=== PATIENT | female | born 1980 | race Hispanic/Latino ===

== ENCOUNTER 2016-10-04 17:03 | Emergency (ER) | payer SELFPAY ==
[2016-10-04 18:20] LABS: Bilirubin,Urine NEG (Negative); Ketones,Urine NEG (Negative); Leukocyte Esterase,Urine MOD (Negative); Nitrite,Urine NEG (Negative); Urobilinogen,Urine < 2.0 mg/dL (<2.0)
[2016-10-04 18:22] LABS: Blood,Urine Large (Negative); RBC,Urine > 182.0 /HPF (0.0-6.0); WBC,Urine > 182.0 /HPF (0.0-6.0)
[2016-10-04] MEDS ORDERED: XYLOCAINE 1% MPF 5 mL INFILTRATI ONE (19:56)
[2016-10-04] MEDS ORDERED: ROCEPHIN IM STA (19:56)
--- NOTE | 2016-10-04 19:56 | Emergency Department Report ---
ED Female HPI - General Chief complaint: Urogenital-Female Stated complaint: OUT OF MEDS Source: patient, family Mode of arrival: Ambulatory Limitations: No Limitations - History of Present Illness Initial comments: Patient here reports that she is having herpes outbreak 1 weeks which is not getting better. She says she took Valtrex prior to breakout but it didn't help. She says she is also having urinary burning. Denies any frequency or urgency. Denies any abdominal or back pain. She reports that she started her cycle last night. Denies any nausea or vomiting. Denies any fever or chills. Pain at blister site vaginal area that is 9 out of 10 and burning. MD Complaint: dysuria, other (herpes outbreak) Onset/Timin -: week(s) Location: labia Radiation: non-radiating Severity: severe Severity scale (0 -10): 9 Quality: burning Consistency: constant Improves with: none Worsens with: urination Are you Now?: No Associated Symptoms: vaginal bleeding (from menstrual period ), dysuria, rash. denies: vaginal discharge, abdominal pain, nausea/vomiting, fever/chills, headaches, loss of appetite, hematuria, seizure, shortness of breath, syncope, weakness - Related Data Sexually active: Yes Previous Rx's Medication Instructions Recorded Last Taken Type Lidocaine [Lidocaine GEL] 30 gm TP TID PRN #1 gel..gram. 10/04/16 Unknown Rx Nitrofurantoin [place]/M-Cryst 100 mg PO Q12HR #14 capsule 10/04/16 Unknown Rx [Macrobid CAP] Valacyclovir HCl [Valtrex] 1,000 mg PO TID #21 tablet 10/04/16 Unknown Rx Allergies Allergy/AdvReac Type Severity Reaction Status Date / Time No Known Allergies Allergy Verified 10/04/16 17:28 ED Review of Systems ROS: Stated complaint: OUT OF MEDS Other details as noted in HPI Comment: All other systems reviewed and negative Constitutional: denies: chills, fever ENT: denies: throat pain Respiratory: no symptoms reported Cardiovascular: denies: chest pain, palpitations, edema, syncope Gastrointestinal: denies: abdominal pain, nausea, vomiting, diarrhea, constipation Genitourinary: dysuria. denies: urgency, frequency, hematuria, discharge, abnormal menses Musculoskeletal: denies: back pain, arthralgia Skin: lesions (vaginal area) Neurological: denies: headache, numbness, paresthesias, confusion ED Past Medical Hx - Past Medical History Previous Medical History?: Yes Hx Kidney Stones: Yes Additional medical history: HERPES - Surgical History Past Surgical History?: No - Family History Family history: no significant - Social History Smoking Status: Current Every Day Smoker Substance Use Type: None - Medications Home Medications: Home Medications Medication Instructions Recorded Confirmed Last Taken Type Lidocaine [Lidocaine GEL] 30 gm TP TID PRN #1 gel..gram. 10/04/16 Unknown Rx Nitrofurantoin [place]/M-Cryst 100 mg PO Q12HR #14 capsule 10/04/16 Unknown Rx [Macrobid CAP] Valacyclovir HCl [Valtrex] 1,000 mg PO TID #21 tablet 10/04/16 Unknown Rx ED Physical Exam - General Limitations: No Limitations General appearance: alert, in no apparent distress - Head Head exam: Present: atraumatic, normocephalic, normal inspection - Eye Eye exam: Present: normal appearance, PERRL, EOMI. Absent: periorbital swelling , periorbital tenderness Pupils: Present: normal accommodation - ENT ENT exam: Present: normal exam, normal orophraynx, mucous membranes moist, TM's normal bilaterally, normal external ear exam - Neck Neck exam: Present: normal inspection, full ROM. Absent: tenderness, meningismus, lymphadenopathy - Respiratory Respiratory exam: Present: normal lung sounds bilaterally. Absent: respiratory distress, chest wall tenderness - Cardiovascular Cardiovascular Exam: Present: regular rate, normal rhythm, normal heart sounds - GI/Abdominal GI/Abdominal exam: Present: soft, normal bowel sounds. Absent: distended, tenderness, guarding, rebound, rigid - External exam: Present: erythema, lesions, bleeding (menstruating). Absent: swelling, lacerations, ecchymosis - Expanded Exam Expanded Female exam: Present: herpetic lesions, vulvar erythema, vulvar tenderness. Absent: vaginal laceration, tissue present in vagina, foreign body - Extremities Exam Extremities exam: Present: normal inspection, full ROM, normal capillary refill. Absent: tenderness, pedal edema, joint swelling, calf tenderness - Back Exam Back exam: Present: normal inspection, full ROM. Absent: tenderness, CVA tenderness (R), CVA tenderness (L), muscle spasm, paraspinal tenderness, vertebral tenderness, rash noted - Neurological Exam Neurological exam: Present: alert, oriented X3, normal gait - Psychiatric Psychiatric exam: Present: normal affect, normal mood - Skin Skin exam: Present: other (hepatic lesions) - Expanded Skin Exam Expanded Distribution of rash: genitals Description of rash: Present: tenderness, erythematous, vesicular. Absent: crusting, discharge, fluctuant, indurated ED Course Vital Signs 10/04/16 17:28 Temperature 98.1 F Pulse Rate 94 H Respiratory 17 Rate Blood Pressure 128/86 O2 Sat by Pulse 100 Oximetry - Reevaluation(s) Reevaluation #1: 10/04/16 21:19 given Rocephin 1 g IM to cover UTI emergency room without any adverse reaction. ED Medical Decision Making - Lab Data Lab Results 10/04/16 Range/Units 17:55 Urine Color Red (Yellow) Urine Turbidity Turbid (Clear) Urine pH 6.0 (5.0-7.0) Ur Specific [place] 1.023 (1.003-1.030) Urine Protein 100 mg/dl (Negative) mg/dL Urine Glucose (UA) 50 (Negative) mg/dL Urine Ketones Neg (Negative) mg/dL Urine Blood Large A (Negative) Urine Nitrite Neg (Negative) Ur Reducing Substances Not Reportable Urine Bilirubin Neg (Negative) Urine Ictotest Not Reportable Urine Urobilinogen < 2.0 (<2.0) mg/dL Ur Leukocyte Esterase Mod (Negative) Urine WBC (Auto) > 182.0 H (0.0-6.0) /HPF Urine RBC (Auto) > 182.0 (0.0-6.0) /HPF U Epithel Cells (Auto) 22.0 H (0-13.0) /HPF Urine HCG, Qual Negative (Negative) Urine culture pending. She is menstruating therefore she has large amount of blood in her urine. - Medical Decision Making ED Course: Given Rocephin 1 g IM and emergency room to cover UTI. Discussed her that she has a urinary tract infection along with a herpes outbreak and I' ll put her on Macrobid for her urinary tract infection and Valtrex for herpes outbreak. I discussed with her she will need to follow-up with her primary care physician and if she does not have one she'll need to follow-up with [facility] for follow-up urinary tract infection and herpes. She was understanding of discharge instruction and will be discharged home with Macrobid, Tylenol 3 and topical lidocaine. SHe is encouraged to practice safe sex and stop smoking. Critical care attestation.: If time is entered above; I have spent that time in minutes in the direct care of this critically ill patient, excluding procedure time. ED Disposition Clinical Impression: Herpes simplex of female genitalia, Acute cystitis with hematuria, Glucosuria Disposition: DISCHARGED TO HOME OR SELFCARE Is pt being admited?: No Does the pt Need Aspirin: No Condition: Stable Instructions: Genital Herpes Simplex (ED), Urinary Tract Infection in Women (ED ) Additional Instructions: Please refrain from having sex until lesions are gone from vaginal area. Please practice safe sex. Someone from the hospital will call you need to change her antibiotic. Urine cultures are pending. increase her fluid intake. Have Small amount of glucose in urine urine therefore he will need to follow-up with primary care or [facility] for repeat urine test in 7-10 days. Prescriptions: Lidocaine [Lidocaine GEL] 30 gm TP TID PRN #1 gel..gram. PRN Reason: Vaginal pain from herpes Nitrofurantoin Gil[place]/M-Cryst [Macrobid CAP] 100 mg PO Q12HR #14 capsule Valacyclovir HCl [Valtrex] 1,000 mg PO TID #21 tablet Referrals: PRIMARY CARE [Primary Care Provider] - 10/11/16 [facility] [Outside] - 10/11/16 Forms: Accompanied Note, Work/School Release Form(ED)
[2016-10-04 21:42] VITALS: BP 134/87
== END 2016-10-04 21:32 | disposition home or self-care (01) ==
LOC: ED 17:03
DX: A60.04 Herpesviral vulvovaginitis (principal); N30.01 Acute cystitis with hematuria; R81 Glycosuria; F17.200 Nicotine dependence, unspecified, uncomplicated
CPT/HCPCS: 81001; 81025; 87086; 96372; 99282; J0696

== ENCOUNTER 2020-11-02 15:15 | Emergency (ER) | payer SELFPAY | END 2020-11-02 16:00 | disposition left against medical advice (07) | LOC: ED 15:15 | DX: Z00.8 Encounter for other general examination (principal); Z53.21 Procedure and treatment not carried out due to patient leaving prior to being seen by health care provider ==

== ENCOUNTER 2022-02-25 02:22 | Emergency (ER) | payer SELFPAY ==
[2022-02-25] MEDS ORDERED: SODIUM CHLORIDE 0.9% 1000 ML 1,000 ML IV ONE ×2 (02:36→04:38)
[2022-02-25] MEDS ORDERED: NALOXONE 0.4 MG/1 ML INJ IV ONE (02:41)
--- NOTE | 2022-02-25 02:45 | Emergency Department Report ---
History of Present Illness - General Chief Complaint: Overdose Stated Complaint: DRUG OD Time Seen by Provider: 02/25/22 02:35 Source: EMS Mode of arrival: Stretcher Limitations: No Limitations - History of Present Illness Initial Comments: Patient presents with EMS. She is a possible overdose. They state that the patient was near someone's home yelling screaming and acting abnormally. While in route she lost consciousness. She is unable to give any additional history. - Related Data Previous Rx's Medication Instructions Recorded Last Taken Type Lidocaine [Lidocaine GEL] 30 gm TP TID PRN #1 gel..gram. 10/04/16 Unknown Rx Nitrofurantoin [place]/M-Cryst 100 mg PO Q12HR #14 capsule 10/04/16 Unknown Rx [Macrobid CAP] Valacyclovir HCl [Valtrex] 1,000 mg PO TID #21 tablet 10/04/16 Unknown Rx Allergies Allergy/AdvReac Type Severity Reaction Status Date / Time No Known Allergies Allergy Verified 10/04/16 17:28 ED Review of Systems ROS: Stated complaint: DRUG OD Other details as noted in HPI Comment: Unobtainable due to pts medical conditions ED Past Medical Hx - Past Medical History Previous Medical History?: Yes Hx Kidney Stones: Yes Additional medical history: HERPES - Surgical History Past Surgical History?: No - Social History Smoking Status: Current Every Day Smoker - Medications Home Medications: Home Medications Medication Instructions Recorded Confirmed Last Taken Type Lidocaine [Lidocaine GEL] 30 gm TP TID PRN #1 gel..gram. 10/04/16 Unknown Rx Nitrofurantoin [place]/M-Cryst 100 mg PO Q12HR #14 capsule 10/04/16 Unknown Rx [Macrobid CAP] Valacyclovir HCl [Valtrex] 1,000 mg PO TID #21 tablet 10/04/16 Unknown Rx ED Physical Exam - General Limitations: Altered Mental Status General appearance: obtunded - Head Head exam: Present: atraumatic, normocephalic - Eye Eye exam: Present: normal appearance Pupils: Present: miosis - ENT ENT exam: Present: mucous membranes moist - Neck Neck exam: Present: normal inspection - Respiratory Respiratory exam: Present: normal lung sounds bilaterally. Absent: respiratory distress - Cardiovascular Cardiovascular Exam: Present: regular rate, normal rhythm. Absent: systolic murmur, diastolic murmur, rubs, gallop - GI/Abdominal GI/Abdominal exam: Present: soft, normal bowel sounds - Extremities Exam Extremities exam: Present: normal inspection - Back Exam Back exam: Present: normal inspection - Neurological Exam Neurological exam: Present: other (obtunded) - Psychiatric Psychiatric exam: Present: normal affect, normal mood - Skin Skin exam: Present: warm, dry, ecchymosis. Absent: rash ED Course Vital Signs 02/25/22 02/25/22 02:30 03:25 Temperature 99.7 F H Pulse Rate 90 Respiratory 18 20 Rate Blood Pressure 130/70 O2 Sat by Pulse 98 99 Oximetry - Reevaluation(s) Reevaluation #1: 02/25/22 04:36 Patient required ketamine as she was unable to be properly sedated using Haldol Versed and Benadryl. ED Medical Decision Making - Lab Data Result diagrams: 02/25/22 03:06 02/25/22 03:06 - Medical Decision Making Patient is a 41-year-old female presented to the emergency department with complaint of altered mental status. While in route patient became unresponsive and is currently on a nonrebreather. She is also noted to have pinpoint pupils. Given this I think most likely diagnosis is opioid overdose but I am also concerned for coingestants. Plan to give IV Narcan and reassess. Patient will require likely 4 hours of monitoring given Narcan administration and patient may require admission pending her work-up. Critical care attestation.: If time is entered above; I have spent that time in minutes in the direct care of this critically ill patient, excluding procedure time. ED Disposition Clinical Impression: Altered mental status, Methamphetamine abuse Disposition: 30 STILL A PATIENT Condition: Stable Instructions: Amphetamines Use Disorder Referrals: WARREN JACINTO MD [Staff Physician] - 3-5 Days
[2022-02-25] MEDS ORDERED: HALOPERIDOL LACTATE 5 MG/1 ML INJ IM ONE ×2 (02:57→03:34)
[2022-02-25] MEDS ORDERED: diphenhydrAMINE 50 MG/ML VIAL IV ONE (02:57)
[2022-02-25] MEDS ORDERED: MIDAZOLAM 2 MG/2 ML INJ ONE (02:59)
[2022-02-25] MEDS ORDERED: diphenhydrAMINE 50 MG/ML VIAL ONE (02:59)
[2022-02-25] MEDS ORDERED: HALOPERIDOL LACTATE 5 MG/1 ML INJ ONE (02:59)
[2022-02-25] MEDS ORDERED: MIDAZOLAM 2 MG/2 ML INJ IV NR ×2 (03:00→04:00)
[2022-02-25 03:29] LABS: Color,Urine Yellow (Yellow)
[2022-02-25 03:30] LABS: Basophils # (Auto) 0.1 K/mm3 (0.0-0.1); Basophils % (Auto) 0.8 % (0.0-1.8); Eosinophils # (Auto) 0.2 K/mm3 (0.0-0.4); Eosinophils % (Auto) 1.2 % (0.0-4.3); Hematocrit 40.9 % (30.3-42.9); Hemoglobin 13.7 gm/dl (10.1-14.3); Lymphocytes # (Auto) 1.8 K/mm3 (1.2-5.4); Lymphocytes % (Auto) 11.6 % (13.4-35.0); Mean Corpuscular HGB Conc 34 % (30-34); Mean Corpuscular Volume 92 fl (79-97); Monocytes # (Auto) 1.2 K/mm3 (0.0-0.8); Monocytes % (Auto) 7.8 % (0.0-7.3); Red Blood Count 4.43 M/mm3 (3.65-5.03); Red Cell Distribution Width 13.2 % (13.2-15.2)
[2022-02-25] MEDS ORDERED: HALOPERIDOL LACTATE 5 MG/1 ML INJ IV ONE (03:30)
[2022-02-25 03:31] LABS: Hyaline Casts,Urine 24 /LPF; Mucus,Urine FEW /HPF; White Blood Cell Casts,Urine 4 /LPF
[2022-02-25 03:36] LABS: INR 0.85 (0.87-1.13); Platelet Count 179 K/mm3 (140-440)
[2022-02-25 03:36] LABS: Amphetamine Screen,Urine PRESUMPTIVE POSITIVE; Benzodiazepines Screen,Urine PRESUMPTIVE NEGATIVE; Cannabinoid Screen,Urine PRESUMPTIVE POSITIVE; Cocaine Screen,Urine PRESUMPTIVE NEGATIVE; Methadone Screen,Urine PRESUMPTIVE NEGATIVE; Opiate Screen,Urine PRESUMPTIVE NEGATIVE
[2022-02-25 03:38] LABS: Alanine Aminotransferase 14 units/L (7-56); Albumin 4.8 g/dL (3.9-5); BUN/Creatinine Ratio 16; Blood Urea Nitrogen 14 mg/dL (7-17); Calcium 9.8 mg/dL (8.4-10.2); Hemolysis Index 28
[2022-02-25] MEDS ORDERED: MIDAZOLAM 5 MG/5 ML INJ MDV IV NR ×5 (04:00→06:00)
[2022-02-25] MEDS ORDERED: KETAMINE 500 MG/5 ML VIAL MDV IV ONE (04:10)
[2022-02-25] MEDS ORDERED: KETAMINE 500 MG/5 ML VIAL MDV ONE (04:10)
[2022-02-25] MEDS ORDERED: ZIPRASIDONE MESYLATE 20 MG VIAL IM ONE ×2 (05:33→05:34)
--- NOTE | 2022-02-25 08:29 | Cat Scan Report ---
CT head/brain wo con INDICATION: altered mental status. TECHNIQUE: Routine CT head. All CT scans at this location are performed using CT dose reduction for A BARBER by means of automated exposure control. COMPARISON: None. FINDINGS: Intracranial: Gottlieb-white matter differentiation is maintained. No intracranial hemorrhage. No extra a xial collection. No hydrocephalus. No herniation. Sinuses: Paranasal sinuses and mastoid air cells are essentially clear. Orbits: Globes are intact. Calvarium: No acute fracture. IMPRESSION: 1. No acute intracranial abnormality. Signer Name: Sree Serrano MD Signed: 02/25/2022 8:25 AM Workstation Name: [id number]
--- NOTE | 2022-02-25 10:40 | Electrocardiograph Report ---
[facility] Test Date: 2022-02-25 Test Time: 02:56:45 Pat Name: LOU SHOEMAKER Department: Room: Gender: F Dining Car Hop: DENISE : 1980 Requested By: PRISCILA LOVELL Order Number: [id number] Reading MD: Rolly August Measurements Intervals [place] Rate: 84 P: 86 NM: 141 QRS: 84 QRSD: 89 T: 49 QT: 377 QTc: 446 Interpretive Statements Sinus rhythm No previous ECG available for comparison Electronically Signed On 02-25-2022 10:40:29 EDT by Rolly August
--- NOTE | 2022-02-25 12:05 | Consultation ---
History of Present Illness - Reason for Consult Consult date: 02/25/22 Reason for consult: OD - History of Present Psychiatric Illness The patient was seen today. She says she was at a hotel room drinking. She says she then went home and was screaming in the middle of the floor. She also admits to meth use. She says her neighbor called 911. The patient denies any SI/HI or hallucinations. She denies being on any psych meds or seeing a psychiatrist. The patient denies any past history of psych disorders. PAST PSYCHIATRIC HISTORY: Diagnoses: Polysubstance abuse Suicide attempts or Self-harm behavior: Denies Prior psychiatric hospitalizations: Denies Substance Abuse history: Meth Previous psychiatric medications tried: Denies Outpatient treatment: Denies PAST MEDICAL HISTORY: None reported Family Psychiatric History: None reported or documented SOCIAL HISTORY Marital Status:Single Living Arrangements: with boyfriend Employment Status: unemployed Access to guns/weapons: Denies Education: [employer] History of Abuse:Denies Legal History: Denies REVIEW OF SYSTEMS Constitutional: Negative for weight loss ENT: Negative for stridor Respiratory: Negative for cough or hemoptysis All other systems reviewed and are negative MENTAL STATUS EXAMINATION General Appearance and Behavior: Age appropriate, wearing appropriate clothes, cooperative, polite with questioning, good eye contact Cooperation: cooperative Psychomotor Behavior: Psychomotor normal Mood: good Affect and affective range: congruent with stated affect Thought Process: Goal directed Thought Content: Reality oriented Speech: Normal volume, Regular rate and rhythm Suicidal Ideation: Denies Homicidal Ideation: Denies Hallucination: Denies Delusions: Denies Impulse Control: Limited Insight and Judgment: Limited Memory: Intact Attention:attentive Orientation: Alert and oriented Diagnoses: Encounter for Mental Health Eval Treatment Plan d/c 1013 No meds given at this time Medical: per primary Disposition: Do not recommend acute psychiatric inpatient treatment Will sign off. Thanks Case staffed with Dr. Moreno Medications and Allergies Allergies Allergy/AdvReac Type Severity Reaction Status Date / Time No Known Allergies Allergy Verified 10/04/16 17:28 Home Medications Medication Instructions Recorded Confirmed Last Taken Type Lidocaine [Lidocaine GEL] 30 gm TP TID PRN #1 gel..gram. 10/04/16 Unknown Rx Nitrofurantoin [place]/M-Cryst 100 mg PO Q12HR #14 capsule 10/04/16 Unknown Rx [Macrobid CAP] Valacyclovir HCl [Valtrex] 1,000 mg PO TID #21 tablet 10/04/16 Unknown Rx Mental Status Exam - Vital signs Last Vital Signs Temp 99.7 F H 02/25/22 02:30 Pulse 92 H 02/25/22 09:15 Resp 16 02/25/22 09:15 BP 126/90 02/25/22 09:15 Pulse Ox 84 02/25/22 06:45 Results Result Diagrams: 02/25/22 03:06 02/25/22 03:06 Abnormal lab results 02/25/22 02/25/22 02/25/22 Range/Units 03:06 03:06 03:06 WBC 15.2 H (4.5-11.0) K/mm3 Lymph % (Auto) 11.6 L (13.4-35.0) % [place] % (Auto) 7.8 H (0.0-7.3) % [place] # (Auto) 1.2 H (0.0-0.8) K/mm3 Seg Neutrophils % 78.6 H (40.0-70.0) % Seg Neutrophils # 12.0 H (1.8-7.7) K/mm3 INR 0.85 L (0.87-1.13) Chloride 107.7 H (98-107) mmol/L Carbon Dioxide 19 L (22-30) mmol/L Glucose 103 H (65-100) mg/dL Total Creatine Kinase (30-135) units/L Salicylates (2.8-20.0) mg/dL Acetaminophen (10.0-30.0) ug/mL 02/25/22 02/25/22 02/25/22 Range/Units 03:06 03:06 03:06 WBC (4.5-11.0) K/mm3 Lymph % (Auto) (13.4-35.0) % [place] % (Auto) (0.0-7.3) % [place] # (Auto) (0.0-0.8) K/mm3 Seg Neutrophils % (40.0-70.0) % Seg Neutrophils # (1.8-7.7) K/mm3 INR (0.87-1.13) Chloride (98-107) mmol/L Carbon Dioxide (22-30) mmol/L Glucose (65-100) mg/dL Total Creatine Kinase 143 H (30-135) units/L Salicylates 0.9 L (2.8-20.0) mg/dL Acetaminophen 5.0 L (10.0-30.0) ug/mL All other labs normal.
--- NOTE | 2022-02-25 12:36 | Event Note ---
Date: 02/25/22 Pt signed out to me by Dr. Jolanta Jackson @ 06:08am patient has been placed on a [address] Jackson and is pending ct head, mental health assessment,and clinical sobriety. 6:13 AM: Patient reassessed by me. She is asleep and arousable. She does not appear to be in any distress. Plan will be to await CT head results as well as clinical sobriety so that she may eventually be evaluated by mental health presuming she is medically cleared. 8 AM: Patient reassessed by me. She is asleep and arousable. She is moving all extremities. No acute distress 9:26 AM: Patient reassessed by me. She is asleep but remains arousable. Vital signs are stable. She is moving all extremities. No acute distress 11 AM: Patient is awake alert and oriented to person place time situation. Mentation is normal. Patient states "I really want to go home. I am ready to get out of here." Her vitals are stable. She is not somnolent. She is mentating well.She repeatedly denies any complaints Patient states "I was partying with some friends last night in a hotel. I was drinking alcohol and yes I know I did methamphetamine. I had not done it in a while but I wanted to try it again. When I got here everyone was just making me angry so that is why I was yelling and screaming like that but I am okay right now. Can you take this Nunez catheter out of me?") I spoke with Johana Ziegler of mental health. She assessed the patient independently. Verbal report, patient does not meet criteria for inpatient admission. Pt cleared for discharge to home.
[2022-02-25 13:06] VITALS: BP 133/69
== END 2022-02-25 13:06 | disposition home or self-care (01) ==
LOC: ED 02:22
DX: R41.82 Altered mental status, unspecified (principal); F15.10 Other stimulant abuse, uncomplicated; Z20.822 Contact with and (suspected) exposure to COVID-19; F17.200 Nicotine dependence, unspecified, uncomplicated; Z87.442 Personal history of urinary calculi; Z79.899 Other long term (current) drug therapy
CPT/HCPCS: 36415; 70450; 80053; 80307; 81001; 82550; 84703; 85025; 85610; 93005; 96361; 96372; 96374; 96375; 96376; 99285; J1200; J1630; J2250; J2310; J3486; J3490; J7030; U0003; 80320; G0480